=== PATIENT | male | born 1985 | race Caucasian/White ===

== ENCOUNTER 2024-03-27 11:26 | Emergency (ER) | payer OTHER ==
[~2024-03-27] VITALS: Ht 177.8 cm; Wt 90.7 kg
[~2024-03-27 11:26] MED LIST: MECLIZINE HCL12.5 MG PO; XANAX1 MG PO; ZOFRAN ODT4 MG PO
[2024-03-27 11:40] VITALS: PULSE 97; RESP 16; TEMP 98.6; O2SAT 98
[2024-03-27] MEDS ORDERED: GOLYTELY SOLU4000 M1 PO (14:37)
== END 2024-03-27 14:56 | disposition home or self-care (01) ==
LOC: ER 11:43
DX: K59.00 Constipation, unspecified (principal); F41.9 Anxiety disorder, unspecified; Z87.19 Personal history of other diseases of the digestive system
CPT/HCPCS: 74019; 99283